=== PATIENT | female | born 1985 | race Asian ===

== ENCOUNTER 2020-02-18 18:31 | Emergency (ER) | payer MEDICAID ==
--- NOTE | 2020-02-18 20:33 | CT ---
PROCEDURE INFORMATION: Exam: CT Abdomen And Pelvis Without Contrast Exam date and time: 02/18/2020 8:17 PM Age: 34 years old Clinical indication: Other: Llq pain x2 wks, non trauma, hematuria; Additional info: Llq pain, hematuria TECHNIQUE: Imaging protocol: Computed tomography of the abdomen and pelvis without contrast. Radiation optimization: All CT scans at this facility use at least one of these dose optimization techniques: automated exposure control; mA and/or kV adjustment per patient size (includes targeted exams where dose is matched to clinical indication); or iterative reconstruction. COMPARISON: No relevant prior studies available. FINDINGS: Liver: There is moderate fatty liver replacement. Gallbladder and bile ducts: No calcified gallstones. No ductal dilation. Pancreas: The pancreatic parenchyma is normal in bulk and sharply marginated. Duct is not dilated. No calcifications, masses, or abnormal fluid collections. Spleen: Spleen is normal in size. No mass or fluid collection. Adrenal glands: There are no adrenal masses. Kidneys and ureters: Normal in parenchymal bulk. No hydronephrosis or asymmetric perinephric stranding. No solid masses. No stones. Stomach and bowel: No significant abnormalities of the stomach. There are no dilated or thickened small bowel loops. Gas and stool are seen in the colon to the rectum. No mass. Appendix: The appendix is seen. It is normal. Intraperitoneal space: No ascites. No abscess. No inflammation within the intra-abdominal fat. No pneumoperitoneum. No mass. Vasculature: No aneurysm. Lymph nodes: There are no enlarged celiac, mesenteric, periportal, extraperitoneal or inguinal lymph nodes. Urinary bladder: Unremarkable as visualized. Reproductive: The uterus and ovaries are within normal limits. There are no adenexal masses. Bones/joints: Age appropriate. No acute fracture. No dislocation. There are no suspicious lytic or osteosclerotic lesions. Soft tissues: See "Intraperitoneal space" finding. IMPRESSION: No sign of acute intra-abdominal pathology.
[2020-02-18 21:00] LABS: ANION GAP 12.3 mEq/L (7-13); CHLORIDE,CL 101 mmol/L (98-107); SODIUM,NA 138 mmol/L (136-145)
[2020-02-18] MEDS ORDERED: Nitrofurantoin Monohydrate/Macrocrystalline 100 MG Cap PO ONE (21:11)
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
== END 2020-02-18 21:22 | disposition home or self-care (01) ==
LOC: DL.ED 18:31
DX: N30.01 Acute cystitis with hematuria (principal); Z72.0 Tobacco use
CPT/HCPCS: 36415; 74176; 80053; 81001; 81025; 85025; 87086; 99284; A9270; 87088; 87186

== ENCOUNTER 2022-08-14 03:22 | Emergency (ER) | payer MEDICAID ==
[2022-08-14] MEDS ORDERED: Sodium Chloride 0.9% 10 ML Syringe FLUSH PRN (04:06)
[2022-08-14 04:19] LABS: BASOPHILS PERCENT AUTO 1.1 % (0.0-1.0); EOSINOPHILS PERCENT AUTO 0.2 % (1.0-3.0); HEMATOCRIT 38.8 % (37.0-47.0); HEMOGLOBIN 13.7 g/dL (12.0-16.0); MEAN CORPUSCULAR HGB CONC 35.3 g/dL (33.0-35.0); MEAN CORPUSCULAR VOLUME 53.9 fL (80-100); MONOCYTES PERCENT AUTO 15.3 % (2-8); NEUTROPHILS PERCENT AUTO 58.4 % (42.2-75.2); PLATELET COUNT,PLT 232 10^3/uL (150-450); WHITE BLOOD CELL COUNT,WBC 5.4 10^3/uL (5.0-10.0)
[2022-08-14 04:34] LABS: HEMOGLOBIN A1C 11.2 % (<5.7)
[2022-08-14 04:35] LABS: A/G RATIO 0.69; ALANINE AMINOTRANSFERASE,ALT 20 U/L (14-59); ALBUMIN 3.3 g/dL (3.4-5.0); ALKALINE PHOSPHATASE 61 U/L (46-116); ANION GAP 12.8 mEq/L (7-13); ASPARTATE AMNIOTRANSFERASE,AST 29 U/L (15-37); BILIRUBIN TOTAL 0.5 mg/dL (0.2-1.0); BLOOD UREA NITROGEN,BUN 12 mg/dL (7-18); BUN/CREATININE RATIO 11.9 (No establ ref range); CALCIUM 8.6 mg/dL (8.5-10.1); CARBON DIOXIDE,CO2 26 mmol/L (21-32); CHLORIDE,CL 98 mmol/L (98-107); CREATININE 1.01 mg/dL (0.55-1.02); ESTIMATED GFR 74 mL/min (>=60); GLUCOSE RANDOM 335 mg/dL (70-99); MAGNESIUM 1.8 mg/dL (1.8-2.4); POTASSIUM,K 3.8 mmol/L (3.5-5.1); PROTEIN TOTAL,TP 8.1 g/dL (6.4-8.2); SODIUM,NA 133 mmol/L (136-145)
[2022-08-14] MEDS ORDERED: Insulin Glarg,Human.Rec.Analog 100 Unit/ML SUBCUT ONE (04:41)
[2022-08-14] MEDS ORDERED: 50% Dextrose in Water 50 ML Syringe IVPUSH PRN (04:41)
[2022-08-14] MEDS ORDERED: Glucagon,Human Recombinant 1 MG Vial IM PRN (04:41)
[2022-08-14 04:48] LABS: APPEARANCE,URINE CLEAR (CLEAR); BILIRUBIN,URINE NEGATIVE (NEGATIVE); COLOR,URINE YELLOW (YELLOW); GLUCOSE,URINE 500 (NEGATIVE); KETONES,URINE TRACE (NEGATIVE); LEUKOCYTE ESTERASE,URINE NEGATIVE (NEGATIVE); NITRITE,URINE NEGATIVE (NEGATIVE); OCCULT BLOOD,URINE TRACE-INTACT (NEGATIVE); PH,URINE 5.5 (5.0-9.0); PROTEIN,URINE NEGATIVE (NEGATIVE)
[2022-08-14 04:55] LABS: AMORPHOUS SEDIMENT,URINE RARE /HPF (NOT SEEN); BACTERIA,URINE FEW /HPF (0-FEW/HPF); EPITHELIAL CELLS,URINE MODERATE /HPF (NOT SEEN); MUCUS,URINE FEW /LPF (NOT SEEN); RBC,URINE 0-5 /HPF (0-5); WBC,URINE 0-5 /HPF (0-5/HPF)
== END 2022-08-14 06:01 | disposition home or self-care (01) ==
LOC: DL.ED 03:22
DX: E11.65 Type 2 diabetes mellitus with hyperglycemia (principal); F17.290 Nicotine dependence, other tobacco product, uncomplicated; Z79.4 Long term (current) use of insulin
CPT/HCPCS: 36415; 80053; 81001; 82947; 83036; 83735; 85025; 86140; 87804; 99284; J1815; J3490